=== PATIENT | female | born 1970 | race Caucasian/White ===

== ENCOUNTER 2017-04-04 05:53 | Day surgery (SDC) | payer OTHER ==
[~2017-04-04] VITALS: Ht 170.2 cm; Wt 71.4 kg
[2017-04-04] VITALS (8 sets, daily range): BP systolic 115–130; BP diastolic 68–88; PULSE 76–105; RESP 9–17; O2SAT 99–100
[~2017-04-04 05:53] MED LIST: Lactated Ringer's 1,000 ML IV SCH
[2017-04-04] MEDS ORDERED: fentaNYL-PF 50 mCg/mL 2 mL Inj ONE (05:54)
[2017-04-04] MEDS ORDERED: Propofol 10,000 mCg/mL 20 mL Inj ONE (05:54)
[2017-04-04] MEDS ORDERED: Glycopyrrolate 0.2 MG/ML 1mL Inj ONE (05:54)
[2017-04-04] MEDS ORDERED: Ondansetron 2 mg/mL 2 mL Inj ONE (05:54)
[2017-04-04] MEDS ORDERED: Dexamethasone 4 mg/mL Inj ONE (05:54)
[2017-04-04] MEDS ORDERED: Clindamycin 600 mg/50 mL D5W IV SCH (06:00)
[2017-04-04] MEDS ORDERED: Lactated Ringer's 1,000 ML IV ONE (06:34)
--- NOTE | 2017-04-04 07:13 | PCM.HPANE ---
Patient Data Surgeon Admitting Provider: Attending Provider:Coby Cee MD Primary Care Physician:Tahmina Rangel DO Other Provider:[facility] Reason for Visit Exposure Of Vaginal Mesh Ht/WT & BMI Height (Feet): 5 Height (Inches): 7.00 Weight (Kilograms): 71.400 Body Mass Index 24.00 Allergies Coded Allergies: erythromycin ethylsuccinate (Verified Allergy, Severe, HIVES, 03/30/17) Penicillins (Verified Allergy, Intermediate, Hives, 03/30/17) codeine (Verified Allergy, Unknown, Nausea, 03/30/17) Past Anesthesia History Anesthesia History: Denies:: Abnormal Airway, Anesthesia Reactions, Difficult Intubation, Fam Anesthesia Reaction, Fam Malignant Hypertherm, Malignant Hyperthermia Diabetes History Hx Diabetes?: No MRSA MRSA: No Medications Home Meds Incl Beta Hernando: No Discontinued Reported Medications Methylphenidate ER (Concerta)36 Mg Tab.er.2436 Mg PO DAILY 12/14/15 History History of ENT Problems?: Yes HEENT History: Positive for:: Sinus Problem (hx septoplasty) Denies:: Abnormal Airway Difficult Intubation Hearing Problem TMJ Denture Type: None Teeth Condition: Within Normal Limits Hx of Heart Problems?: No Cardiovascular History: Denies:: Edema Hypertension Hx of Respiratory Problem?: No Respiratory History: Denies:: Asthma COPD Cough Dyspnea Emphysema Hemoptysis Oxygen Administration Pneumonia Pulmonary Embolism Tuberculosis Use of C-PAP Machine Hx Neurologic Problems?: Yes Neurological History: Positive for:: Headaches (Menstral related) Denies:: Alzheimer's Disease CVA Dementia Dizziness Multiple Sclerosis Parkinson's Disease Seizures TIA Hx of GI Problems?: No Hx of Problems?: Yes Genitourinary History: Denies:: HX of Hemodialysis Kidney Stones Urinary Tract Infection HX of Peritoneal Dialysis: No Female Hx: Denies:: Currently Problems with Breasts? Skin History: Positive for:: History Skin Disorders? (reash on chest uses OTC creams) Denies:: Pressure Ulcers Hx Musculoskeletal Problems?: Yes Musculoskeletal History: Positive for:: Musculoskeletal Trauma Denies:: Back Injury Degenerative Joint Joint Replacement Rheumatoid Arthritis Hx of Psycho/Social Problems?: No Psycho Social History: Denies:: Anxiety Hx Depression Hx Surgeries?: Yes (missed AB, left thigh contour deformity correction) Hx Any Other Health Problems?: Yes Other History: Denies:: Cancer Hospitalization Thyroid Disease History Blood Transfusions: Positive for:: Accept Blood Products? Denies:: Blood Transfusions Hx Diabetes: No Hx Alcohol Use: NoHx Substance Use: No Smoking Status: Never Smoker Have You Smoked inLast 12 mo: No Stop/Bang S-Snoring: Do You Snore Loudly: No T-Tired: feel tired, fatigued: No O-Obsered: Observed not breath: No P-Blood Pressure: treated: No B- Body Mass Index > 35 kg/m2: No A- Age over 50: No N- Neck Large Circumference: No G- Gender Male: No SAAD Total Score: 0 Risk Assessment Category Category 1A: Patient has history of documented sleep apnea, and HAS NOT received any narcotic, sedative or anesthesia administration during this stay. Category 1B: Patient has history of documented sleep apnea, and HAS received any narcotic , sedative or anesthesia administration during this stay Category 2: Patient has SUSPECTED Obstructive Sleep Apnea, and HAS received any narcotic , sedative or anesthesia administration during this stay. Category 3: Patient has SUSPECTED Obstructive Sleep Apnea and HAS NOT received narcotic, sedative or anesthesia administration during this stay. Category 4: Outpatient in Procedural Areas with known sleep apnea or who screen positive for High Risk via the STOP/BANG questionnaire. Exam Exam Vital Signs Vital Signs Date Time Temp Pulse Resp B/P Pulse Ox O2 Delivery O2 Flow Rate FiO2 04/04/17 06:35 36.3 76 17 116/68 99 Room Air General Appearance: Alert, Oriented X3 HEENT/AIRWAY: MP 2, Neck Movement (FROM) Lungs: Clear to Auscultation, Clear to Percussion Heart: Exam Unremarkable, Regular Rate/Rhythm Meds/Labs/Diagnostics Admission Meds Current Medications Lactated Ringer's (Lr) 1,000 ml @ ud STK-MED ONCE IV Last administered on 04/04t 06:34; Start 04/04/17 at 06:34; Stop 04/04/17 at 06:35; Status DC Plan Impression Patient chart reviewed, patient interviewed and anesthestic plan with risks, benefits, and alternatives discussed, and informed consent obtained. ASA Physical Status: ASA2 Mod Systemic Disease Anesthetic Plan: GA Bene/Risks/Altern/Consents: Yes HP Complete Prior to Induction: Yes Eligio Mobley MD Apr 04, 2017 07:12
[2017-04-04] MEDS ORDERED: Bupivacaine Liposome 1.3% 20 mL Inj ONE (07:17)
[2017-04-04] MEDS ORDERED: Lactated Ringer's 1,000 ML IV SCH (07:53)
[2017-04-04] MEDS ORDERED: Lactated Ringer's 500 ML IV PRN (07:53)
[2017-04-04] MEDS ORDERED: HYDROmorphone 1 mg/mL Inj IVPUSH PRN (07:55)
[2017-04-04] MEDS ORDERED: Phenylephrine 10,000 mCg/mL Inj IVPUSH PRN (07:55)
[2017-04-04] MEDS ORDERED: fentaNYL-PF 50 mCg/mL 2 mL Inj IVPUSH PRN (07:55)
[2017-04-04] MEDS ORDERED: Atropine 0.4 mg/mL Inj IVPUSH PRN (07:55)
[2017-04-04] MEDS ORDERED: Ondansetron 2 mg/mL 2 mL Inj IVPUSH PRN (07:55)
[2017-04-04] MEDS ORDERED: MetoCLOpramide 5 mg/mL 2 mL Inj IVPUSH PRN (07:55)
[2017-04-04] MEDS ORDERED: EPHEDrine Sulfate 50 mg/mL Inj IVPUSH PRN (07:55)
[2017-04-04] MEDS ORDERED: Labetalol 5 mg/mL 20 mL Inj IV PRN (07:55)
[2017-04-04] MEDS ORDERED: Bupivacaine Liposome 1.3% 20 mL Inj INFILTRATE ONE (07:58)
[2017-04-04] MEDS ORDERED: Bupivacaine-MPF 0.5% W/EPI 30 mL Inj INFILTRATE ONE (07:58)
[2017-04-04] MEDS ORDERED: Gentamicin 40 mg/mL 2 mL Inj IRRIGATION ONE (07:59)
[2017-04-04] MEDS ORDERED: HYDROcodone-APAP 5-325 mg Tablet PO PRN (08:35)
[2017-04-04] MEDS ORDERED: Ondansetron 8 mg ODT Tablet PO PRN (08:35)
--- NOTE | 2017-04-04 09:11 | PCM.ANEP1 ---
Post Anesthesia PACU Phase 1 Assessment Vital Signs Vital Signs Date Time Temp Pulse Resp B/P Pulse Ox O2 Delivery O2 Flow Rate FiO2 04/04/17 09:00 85 9 125/75 100 Room Air 04/04/17 08:55 36.6 86 12 127/72 100 Room Air 04/04/17 08:45 89 12 115/84 100 Room Air 04/04/17 08:40 94 15 119/88 100 Room Air 04/04/17 08:35 97 14 121/74 99 Room Air 04/04/17 08:32 36.4 105 15 130/79 100 Simple Mask 8 04/04/17 06:35 36.3 76 17 116/68 99 Room Air Anesthetic Administered: GA Level of Alertness: Awake, talking LEE's with Equal Strength: No Pain: Yes Nausea or Vomiting: No CV Function & Hydration Stable: Yes Airway Device: Oxygen Delivery: Simple Mask Lungs: Clear to Auscultation, Clear to Percussion PACU Phase 2 Assessment Complications: No Follow up Care: No Patient Instructions Provided: N/A Eligio Mobley MD Apr 04, 2017 09:11
--- NOTE | 2017-04-05 18:46 | OP ---
[address] [address] OPERATIVE REPORT PATIENT: SHER PAULINO : 1970 MR#: [id number] ADMIT: 04/04/2017 JOB ID: [id number] CORRECTED REPORT: DATE OF SURGERY: 04/04/2017 SURGEON: Coby Cee MD PROCEDURE: Excision of vaginal mesh erosion. PREOPERATIVE DIAGNOSIS(ES): Dyspareunia with exposed mesh in the right fornix of the vagina. POSTOPERATIVE DIAGNOSIS(ES): Dyspareunia with exposed mesh in the right fornix of the vagina. ANESTHESIA: General. INDICATIONS: The patient is a 47-year-old woman with a history of transobturator mid urethral sling placement with excellent results with regards to continence but increasing pain on the right side greater than left. At exam, found to have vaginal erosion of polypropylene mesh not overlying the mid urethra. She was counseled about treatment options and elected excision locally of the exposed mesh, leaving the remainder in situ in hopes of retaining her excellent continence. PROCEDURE IN DETAIL: After appropriate informed consent was obtained, the patient was brought to the operating room. She received IV antibiotics prior to onset of procedure. SCDs were placed. Adequate general anesthesia was induced. She was carefully placed in the dorsal lithotomy position. All pressure points carefully padded. Cleaned, prepped, and draped in the usual sterile fashion. An 18-[place] Manuel catheter was placed, bladder was drained, and the catheter was clamped out of field. Weighted speculum was used, a [place] retractor provided excellent visualization with a clearly visible small segment of polypropylene mesh in the right vaginal fornix. This area was infiltrated with Marcaine with epinephrine. We undermined the vaginal mucosa surrounding the exposed mesh, freshened up the edges, trimmed the mesh back to nonpalpable length in the right vaginal fornix. There was good bleeding. Good bleeding edges were brought together after the wound itself was irrigated out copiously with antibiotic solution. There was good approximation. The patient tolerated the procedure very well. Blood loss was minimal. As the dissection was quite remote from the location of the urethra, we did not perform a cystoscopy. Vaginal packing was placed. Manuel catheter was drained and removed. The patient tolerated the procedure very well, was awakened and taken in stable condition to the postanesthesia care unit. Corrected by GS 04/10/17 at 10:30am DOS.
== END 2017-04-04 23:59 | disposition home or self-care (01) ==
LOC: SAS 05:53
PROVIDERS: ATTEND Urology
DX: T83.721A Exposure of implanted vaginal mesh into vagina, initial encounter (principal); R10.2 Pelvic and perineal pain; N39.46 Mixed incontinence; J30.9 Allergic rhinitis, unspecified; F41.8 Other specified anxiety disorders; F98.8 Other specified behavioral and emotional disorders with onset usually occurring in childhood and adolescence; Z87.440 Personal history of urinary (tract) infections; Z79.890 Hormone replacement therapy
CPT/HCPCS: 57295; J1100; J1580; J1885; J2175; J2405; J2704; J3010; J7120